=== PATIENT | male | born 1940 | race Caucasian/White ===

== ENCOUNTER → 2016-12-19 | Outpatient (CLI) | payer MEDICARE, OTHER ==
[2016-12-19 10:58] LABS: CH 32.8; CHCM 33.6; HCT 49.3 % (39.0-53.0); HDW 2.43; HGB 16.5 gm/dL (13.0-17.5); MCH 32.9 pg (25.0-35.0); MCHC 33.6 g/dL (31.0-37.0); RBC 5.03 m/uL (4.30-5.90); RDW 13.2 % (11.5-15.5); WBC 5.8 k/uL (3.8-10.6)
[2016-12-19 11:02] LABS: Anion Gap 11 mmol/L; Blood Urea Nitrogen 16 mg/dL (9-20); Carbon Dioxide 27 mmol/L (22-30); Chloride 99 mmol/L (98-107); Non-African American GFR(MDRD) >60 (>60 ml/min/1.73 sqM); Potassium 5.2 mmol/L (3.5-5.1); Sodium 137 mmol/L (137-145)
== END | disposition home or self-care (01) ==
LOC: LABPAT 10:14
PROVIDERS: ATTEND Internal Medicine Interventional Cardiology
DX: Z01.812 Encounter for preprocedural laboratory examination (principal); I25.10 Atherosclerotic heart disease of native coronary artery without angina pectoris
CPT/HCPCS: 80051; 82565; 84520; 85027

== ENCOUNTER 2016-12-25 10:39 | Day surgery (SDC) | payer MEDICARE, OTHER ==
[2016-12-21 14:29] VITALS: BMI 29.3
[~2016-12-25 10:39] MED LIST: SODIUM CHLORIDE 0.9% 1,000 ML in EMPTY BAG 1 BAG IV ONE
[2016-12-25 11:28] LABS: Glucose,Whole Blood 196 mg/dL (75-99)
[2016-12-25] MEDS ORDERED: MIDAZOLAM 2 MG/2 ML VIAL IV ONE (13:05)
[2016-12-25] MEDS ORDERED: BIVALIRUDIN BOLUS 250 MG/50 ML IV ONE (13:22)
[2016-12-25] MEDS ORDERED: BIVALIRUDIN 250 MG in SODIUM CHLORIDE 0.9% 50 ML IV ONE (13:22)
[2016-12-25] MEDS: NITROGLYCERIN 1000MCG/10ML SYRINGE INTRAARTER ONE ×2 (13:28→13:34)
[2016-12-25] MEDS ORDERED: CLOPIDOGREL 75 MG TAB PO ONE (13:38)
[2016-12-25] MEDS ORDERED: IOHEXOL 350 MG/ML 100 ML BOTTLE INJ ONE (13:40)
[2016-12-25] MEDS ORDERED: IOHEXOL 350 MG/ML 50ML BOTTLE INJ ONE (13:40)
[2016-12-25] MEDS ORDERED: MAG HYDROX/AL HYDROX/SIMETH 30 ML CUP PO PRN (14:43)
[2016-12-25] MEDS ORDERED: RX INFO: IV CONTRAST WAS GIVEN 1 EACH MISC MISCELLANE PRN (14:43)
[2016-12-25] MEDS ORDERED: ATROPINE SULFATE 0.1 MG/ML 10ML SYRINGE IV PRN (14:43)
[2016-12-25] MEDS ORDERED: SODIUM CHLORIDE 0.9% 1,000 ML IV SCH (14:43)
[2016-12-25] MEDS ORDERED: ZOLPIDEM 5 MG TAB PO PRN (14:43)
[2016-12-25] MEDS ORDERED: NITROGLYCERIN SL TABS 0.4 MG TAB SUBLINGUAL PRN (14:43)
[2016-12-25 16:04] LABS: Glucose,Whole Blood 143 mg/dL (75-99)
[2016-12-25 16:54] LABS: Glucose,Whole Blood 132 mg/dL (75-99)
[2016-12-25] MEDS ORDERED: RIVAROXABAN 10 MG TAB PO SCH (17:30)
[2016-12-25] MEDS ORDERED: ASPIRIN 81 MG CHEW PO SCH (21:00)
[2016-12-25] MEDS ORDERED: FERROUS SULFATE 325 MG TAB PO SCH (21:00)
[2016-12-25] MEDS ORDERED: hydrOXYzine HCL 25 MG TAB PO SCH (21:00)
[2016-12-25 21:02] LABS: Glucose,Whole Blood 265 mg/dL (75-99)
[2016-12-25] MEDS: FAMOTIDINE 20 MG TAB PO SCH (21:35)
[2016-12-25] MEDS: GLIMEPIRIDE 4 MG TAB PO SCH (21:35)
[2016-12-26 06:05] LABS: Glucose,Whole Blood 159 mg/dL (75-99)
[2016-12-26 06:25] LABS: Aty Lym Flag Slight; CH 33.3; CHCM 35.8; HCT 43.9 % (39.0-53.0); HDW 2.64; HGB 15.1 gm/dL (13.0-17.5); MCHC 34.3 g/dL (31.0-37.0); MCV 93.4 fL (80.0-100.0); Mean Platelet Volume 7.8; RDW 12.5 % (11.5-15.5); WBC 5.5 k/uL (3.8-10.6); WBC (Perox) 5.51
[2016-12-26 06:43] LABS: Anion Gap 7 mmol/L; Blood Urea Nitrogen 11 mg/dL (9-20); Calcium 8.7 mg/dL (8.4-10.2); Carbon Dioxide 30 mmol/L (22-30); Chloride 102 mmol/L (98-107); Glucose 155 mg/dL (74-99); Non-African American GFR(MDRD) >60 (>60 ml/min/1.73 sqM); Potassium 3.8 mmol/L (3.5-5.1); Sodium 139 mmol/L (137-145)
--- NOTE | 2016-12-26 08:06 | CC ---
DATE OF SERVICE: 12/25/2016 PROCEDURE PERFORMED: 1. Selective right and left coronary angiogram. 2. Successful stenting of the ramus intermedius coronary artery using 2.5 x 12 mm Xience drug-eluting stent with a good angiographic result. INDICATION: This is a very pleasant 76-year-old gentleman who is known to have coronary artery disease and prior stenting of the mid LAD was experiencing intermittent episodes of chest discomfort consistent with angina. In view of that, I recommended proceeding with a heart catheterization. APPROACH: Right common femoral artery. COMPLICATIONS: None. LEVEL OF SEDATION: Moderate with sedation length of about 33 minutes. PROCEDURE DESCRIPTION: After obtaining an informed consent, the patient was brought to the cardiac laborer brush clearing. The right common femoral artery was cannulated using micropuncture technique. Micropuncture wire passed easily, then I placed a 6 [place] sheath in the right common femoral artery. Subsequently, I did selective right and left coronary angiogram using JR4 and JL4 catheters. After that, I decided to intervene on ramus intermedius, please see separate paragraph for that. SELECTIVE CORONARY ANGIOGRAM: 1. The right coronary artery is a large-caliber vessel and it is a dominant vessel. The right coronary artery appeared to have mild disease only. Distally it bifurcates into PDA and PLV branches; both are angiographically normal. 2. The left main is angiographically normal. It bifurcates into the left circumflex, ramus intermedius, and left anterior descending artery. 3. The left circumflex is a large-caliber vessel. It is a nondominant vessel. The left circumflex appeared to have mild disease only. It gives rise into the first OM, which is a large-caliber vessel and seems to be angiographically normal. 4. The ramus intermedius, which is a large-caliber vessel, seems to have severe disease in the very proximal portion. 5. Left anterior descending artery: The proximal LAD appeared to have mild disease only. The mid LAD is stented and the stent is patent. The LAD distally appeared to have mild disease only. The LAD gives rise into multiple diagonal branches that seems to be angiographically normal. PCI OF THE RAMUS INTERMEDIUS: Anticoagulation was initiated using Angiomax. Subsequently I took JL4 guide and the left main was engaged. A whisper wire was used to wire the ramus intermedius. Subsequently I did PTCA ballooning using 2.0 x 12 mm balloon. Then I deployed 2.5 x 12 mm Xience KAREN, where the stent was positioned under fluoroscopy guidance and deployed under 12 atmospheres for 30 seconds. The following angiogram showed good angiographic results. CONCLUSION: 1. Mild disease in the RCA. 2. Mild disease in the LCx. 3. Severe de nhung coronary artery disease involving the ramus intermedius. 4. Patent stent in the mid LAD. 5. Successful stenting of the ramus intermedius using 2.5 x 12 mm Xience KAREN with a good angiographic result. POSTPROCEDURE MANAGEMENT: 1. Dual antiplatelet therapy. 2. Risk factor modification. 3. Will follow up with the patient.
[2016-12-26] MEDS: FAMOTIDINE 20 MG TAB PO SCH (08:52)
[2016-12-26] MEDS: GLIMEPIRIDE 4 MG TAB PO SCH (08:52)
[2016-12-26] MEDS ORDERED: NON-FORMULARY DRUG (Cinnamon Bark [Cinnamon] 1,000 MG) PO SCH (09:00)
[2016-12-26] MEDS ORDERED: LUTEIN PO SCH (09:00)
[2016-12-26] MEDS ORDERED: METOPROLOL TARTRATE 25 MG TAB PO SCH (09:00)
[2016-12-26] MEDS ORDERED: CLOPIDOGREL 75 MG TAB PO SCH (09:00)
[2016-12-26] MEDS ORDERED: NON-FORMULARY DRUG (Krill Oil [Krill Oil] 500 MG) PO SCH (09:00)
[2016-12-26] MEDS ORDERED: LISINOPRIL 10 MG TAB PO SCH (09:00)
[2016-12-26] MEDS ORDERED: amLODIPine 10 MG TAB PO SCH (09:00)
[2016-12-26] MEDS ORDERED: TURMERIC ROOT EXTRACT 1000 MG PO SCH (09:00)
[2016-12-26 10:19] LABS: Add Differential Manual Differential
[2016-12-26 10:21] LABS: Nucleated Red Blood Cells 0 /100 WBC (0-0); Total Cells Counted 100
[2016-12-26 10:23] LABS: Manual Review Performed
[2016-12-26 11:33] LABS: Glucose,Whole Blood 290 mg/dL (75-99)
[2016-12-26 11:54] VITALS: BP 134/82; PULSE 73; RESP 32; TEMP 96.9
[2016-12-26] MEDS ORDERED: MULTIVITAMINS, THERA 1 EACH TAB PO SCH (12:00)
--- NOTE | 2016-12-27 09:36 | DS ---
DATE OF ADMISSION: 12/25/2016 DATE OF DISCHARGE: 12/26/2016 BRIEF HISTORY: This is a pleasant 76-year-old gentleman who is known to have coronary artery disease and prior stenting of the mid LAD who was experiencing intermittent episodes of chest discomfort consistent with angina. He was also feeling tired and fatigued and has no energy. He was admitted to the hospital yesterday where he underwent a heart catheterization which showed patent stent in the mid LAD with severe de nhung coronary artery disease involving the proximal ramus intermedius. He underwent successful stenting of the ramus intermedius with a good angiographic result and without any complication. The procedure was performed from the right groin, which is soft and nontender and without any bruises. The patient is going to be discharged home on dual antiplatelet therapy and I will follow up with the patient as an outpatient in the office.
== END 2016-12-26 12:36 | disposition home or self-care (01) ==
LOC: CATHCVL 10:39 → 6SEL 13:40 → CATHCVL 12-26 12:36
PROVIDERS: ATTEND Internal Medicine Interventional Cardiology
DX: I25.110 Atherosclerotic heart disease of native coronary artery with unstable angina pectoris (principal); Z95.5 Presence of coronary angioplasty implant and graft; I45.10 Unspecified right bundle-branch block; R94.31 Abnormal electrocardiogram [ECG] [EKG]; I10 Essential (primary) hypertension; E78.5 Hyperlipidemia, unspecified; I48.0 Paroxysmal atrial fibrillation; E11.9 Type 2 diabetes mellitus without complications; E78.00 Pure hypercholesterolemia, unspecified; Z86.73 Personal history of transient ischemic attack (TIA), and cerebral infarction without residual deficits; Z79.01 Long term (current) use of anticoagulants; Z79.84 Long term (current) use of oral hypoglycemic drugs; Z79.82 Long term (current) use of aspirin; Z79.899 Other long term (current) drug therapy; Z91.09 Other allergy status, other than to drugs and biological substances; Z87.891 Personal history of nicotine dependence
CPT/HCPCS: 93454; 80048; 85025; 99152; 99153; C9600; C1760; C1769 ×3; C1887; C1725; C1894; C1874; J2250; Q9967 ×2; J0583

== ENCOUNTER → 2019-11-12 | Outpatient (CLI) | payer MEDICARE ==
[2019-11-12 11:29] LABS: Basophils # (A) 0.1 k/uL (0-0.2); Basophils % (A) 1 %; Eosinophils # (A) 0.1 k/uL (0-0.7); Eosinophils % (A) 2 %; HCT 47.9 % (39.0-53.0); HGB 15.8 gm/dL (13.0-17.5); Lymphocytes # (A) 1.5 k/uL (1.0-4.8); Lymphocytes % (A) 19 %; MCH 31.8 pg (25.0-35.0); MCHC 32.9 g/dL (31.0-37.0); MCV 96.9 fL (80.0-100.0); Mean Platelet Volume 8.7; Monocytes # (A) 0.6 k/uL (0-1.0); Monocytes % (A) 8 %; Neutrophils # (A) 5.3 k/uL (1.3-7.7); Neutrophils % (A) 68 %; Platelet Count 257 k/uL (150-450); RBC 4.95 m/uL (4.30-5.90); RDW 12.1 % (11.5-15.5); WBC 7.7 k/uL (3.8-10.6)
[2019-11-12 12:16] LABS: Erythrocyte Sedimentation Rate 11 mm/hr (0-15)
[2019-11-12 18:45] LABS: C Reactive Protein 0.7 mg/dL (0.0-0.8)
== END | disposition home or self-care (01) ==
LOC: LABWHC1 10:35
PROVIDERS: ATTEND Orthopaedic Surgery
DX: M06.9 Rheumatoid arthritis, unspecified (principal)
CPT/HCPCS: 36415; 84075; 85025; 85652; 86038; 86140; 86431